=== PATIENT | male | born 1995 | race African-American/Black ===

== ENCOUNTER 2024-12-06 17:29 | Emergency (ER) | payer OTHER ==
[2024-12-06 17:51] VITALS: BP 123/58; PULSE 94; RESP 16; TEMP 98.3; BMI 23.7
[2024-12-06] MEDS ORDERED: ACETAMINOPHEN INJECTION 100 ML ONE (18:40)
[2024-12-06] MEDS ORDERED: ONDANSETRON 4 MG/2 ML VIAL ONE (18:40)
[2024-12-06] MEDS ORDERED: KETOROLAC TROMETHAMINE 30 MG/1 ML VIAL ONE (18:40)
[2024-12-06] MEDS ORDERED: FAMOTIDINE 20 MG/50 ML IVPB 20 MG/50 ML MG IVPB ONE (18:41)
[2024-12-06 18:42] LABS: ABSOLUTE IMMATURE GRANULOCYTES 0.02 x10^3/uL (0.0-0.031); BASOPHILS # 0.02 x10^3/uL (0.01-0.08); EOSINOPHIL % 0.7 % (0.8-7.0); EOSINOPHILS # 0.03 x10^3/uL (0.04-0.54); HEMATOCRIT 51.9 % (40.1-51.0); HEMOGLOBIN 16.5 g/dL (13.7-17.5); MCHC 31.8 g/dl (32.3-36.5); MEAN CELL VOLUME 93.3 fl (79.0-92.2); MEAN PLT VOLUME 10.1 fl (9.4-12.4); MONOCYTE # 0.38 x10^3/uL (0.30-0.82); MONOCYTE % 8.6 % (5.3-12.2); PLATELET COUNT 200 x10^3/uL (163-337); RDW 12.5 % (11.9-15.3)
[2024-12-06 18:44] LABS: PH,URINE 5.5 (5.0-8.0); URINE APPEARANCE CLEAR; URINE BILIRUBIN NEGATIVE (NEGATIVE); URINE COLOR YELLOW; URINE GLUCOSE (UA) NEGATIVE (NEGATIVE); URINE KETONE TRACE (NEGATIVE); URINE LEUK ESTERASE NEGATIVE (NEGATIVE); URINE NITRITE NEGATIVE (NEGATIVE); URINE PROTEIN NEGATIVE (NEGATIVE)
[2024-12-06] MEDS: KETOROLAC TROMETHAMINE 30 MG/1 ML VIAL IVPUSH ONE (18:53)
[2024-12-06] MEDS: ONDANSETRON 4 MG/2 ML VIAL IVPUSH ONE (18:53)
[2024-12-06] MEDS: SODIUM CHLORIDE 0.9% 500 ML INFUS.BAG IV ONE (18:59)
[2024-12-06] MEDS: FAMOTIDINE 20 MG/50 ML IVPB 20 MG/50 ML MG IVPB ONE (18:59)
[2024-12-06 19:04] LABS: POTASSIUM 4.2 mmol/L (3.5-5.1)
[2024-12-06] MEDS: ACETAMINOPHEN 1000 MG/100 ML BAG IVPB ONE (19:06)
[2024-12-06 19:07] LABS: ALBUMIN 4.2 g/dl (3.4-5.0); CALCIUM 9.9 mg/dL (8.5-10.1)
[2024-12-06 19:10] LABS: CREATININE 1.4 mg/dL (0.55-1.3)
[2024-12-06 19:11] LABS: BILIRUBIN,TOTAL 2.1 mg/dL (0.2-1)
[2024-12-06 19:12] LABS: TOT PROT 8.1 g/dl (6.4-8.2)
[2024-12-06] MEDS: SODIUM CHLORIDE 1,000 ML IV STA (20:21)
== END 2024-12-06 20:52 | disposition home or self-care (01) ==
LOC: JER 17:29
PROC: 3E033GC Introduction of Other Therapeutic Substance into Peripheral Vein, Percutaneous Approach (ICD-10-PCS; principal; 2024-12-06)
PROC: 3E033NZ Introduction of Analgesics, Hypnotics, Sedatives into Peripheral Vein, Percutaneous Approach (ICD-10-PCS; 2024-12-06)
PROC: 3E0333Z Introduction of Anti-inflammatory into Peripheral Vein, Percutaneous Approach (ICD-10-PCS; 2024-12-06)
PROC: 3E033GC Introduction of Other Therapeutic Substance into Peripheral Vein, Percutaneous Approach (ICD-10-PCS; 2024-12-06)
PROC: 3E0337Z Introduction of Electrolytic and Water Balance Substance into Peripheral Vein, Percutaneous Approach (ICD-10-PCS; 2024-12-06)
DX: R11.2 Nausea with vomiting, unspecified (principal); R10.31 Right lower quadrant pain; R10.32 Left lower quadrant pain; R10.33 Periumbilical pain; R19.7 Diarrhea, unspecified
CPT/HCPCS: 36415; 80053; 81003; 83690; 85025; 87086; 99284-25